=== PATIENT | female | born 1975 | race Caucasian/White ===

== ENCOUNTER → 2019-10-23 | Outpatient (REF) | payer OTHER, MEDICAID | LOC: M LAB REF 19:06 | PROVIDERS: ATTEND Physician Assistant | DX: Z12.4 Encounter for screening for malignant neoplasm of cervix (principal); Z01.419 Encounter for gynecological examination (general) (routine) without abnormal findings ==

== ENCOUNTER → 2022-01-13 | Outpatient (CLI) | payer OTHER, MEDICAID | LOC: M SOG 08:04 | PROVIDERS: ATTEND Physician Assistant | DX: S82.842D Displaced bimalleolar fracture of left lower leg, subsequent encounter for closed fracture with routine healing (principal); M79.89 Other specified soft tissue disorders; M19.071 Primary osteoarthritis, right ankle and foot; Z87.81 Personal history of (healed) traumatic fracture ==

== ENCOUNTER 2022-08-02 11:35 | Emergency (ER) | payer OTHER, MEDICAID ==
[2022-08-02] MEDS ORDERED: methodone PO (11:53)
[2022-08-02] MEDS ORDERED: ACETAMINOPHEN 500 MG TAB PO ONE (13:50)
[2022-08-02 14:09] VITALS: BP 118/67
== END 2022-08-02 14:10 | disposition home or self-care (01) ==
LOC: M ED 11:35 → EDBD 11:35 → M ED 14:10
DX: R22.42 Localized swelling, mass and lump, left lower limb (principal); W01.0XXA Fall on same level from slipping, tripping and stumbling without subsequent striking against object, initial encounter; Y92.099 Unspecified place in other non-institutional residence as the place of occurrence of the external cause; Z79.899 Other long term (current) drug therapy; Z88.2 Allergy status to sulfonamides